=== PATIENT | male | born 1970 | race Caucasian/White ===

== ENCOUNTER 2016-11-24 09:15 | Inpatient (IN) | payer BC ==
[~2016-11-24] VITALS: Ht 180.3 cm; Wt 132.1 kg
--- NOTE | ~2016-11-24 | ENPV ---
Vascular Lower Extremity Vein Mapping Procedure Demographics Patient Name RADHA VALERA Date of Study 11/24/2016 Patient Number [id number] Gender Male Date of 1970 Age 46 Visit Number [id number] Height Accession Number [id number] Weight Room Number G6204 BSA BMI Referring Gal Monahan MD Physician DO Physician Physician Ordering Physician Gal Waldrop DO Manager Development Gas Scrubber Operator Ihsan Santos Conclusions Summary Greater saphenous veins are small in diameter bilaterally. Procedure Type of Study: Veins:Lower Extremity Vein Mapping, Vein Mapping. Indications for Study:Pre-Op CABG. Patient Status:Routine. Study Location:Inpatient Portable. Technical Quality:Adequate visualization. Velocities are measured in cm/s ; Diameters are measured in cm + ++--------++--------+ !Superficial - Great Saphenous Vein !!Right !!Left ! + ++--------++--------+ !Location !!Diameter!!Diameter! + ++--------++--------+ !Sapheno Femoral Junction !!0.33 !! ! + ++--------++--------+ !GSV High Thigh !!0.25 !! ! + ++--------++--------+ !GSV Mid Thigh !!0.23 !!0.14 ! + ++--------++--------+ !GSV Low Thigh !!0.17 !!0.09 ! + ++--------++--------+ !GSV Knee !!0.13 !!0.11 ! + ++--------++--------+ !GSV High Calf !!0.13 !!0.1 ! + ++--------++--------+ !GSV Mid Calf !!0.13 !!0.1 ! + ++--------++--------+ !GSV Ankle !!0.11 !!0.15 ! + ++--------++--------+ Signature dtt: Caleb Carrion dtd: 11/24/16 1536 Physician Self Edit
--- NOTE | ~2016-11-24 | OR ---
PATIENT'S NAME: RADHA VALERA [facility] AGE: 46 Y [address] ROOM: [address] [address] LOCATION: GICU ADMIT DATE: 11/24/2016 OR/Procedure Report DISCHARGE DATE: FAMILY PHYSICIAN: PHYSICIAN, NO ATTENDING PHYSICIAN: Radha Rolle SURGEON: Radha Rolle DO FARM GENERAL MANAGER: DATE OF PROCEDURE: 11/27/2016 PREOPERATIVE DIAGNOSIS: Volume overload with oliguric renal failure. POSTOPERATIVE DIAGNOSIS: Volume overload with oliguric renal failure. PROCEDURE: Insertion of left internal jugular vein temporary hemodialysis catheter. REFERRING PHYSICIAN: Mayda Orozco MD. BRIEF HISTORY: Mr. Valera is a 46-year-old man with above-noted diagnosis, he is in need of volume removal. Informed consent has been obtained from his . The left internal jugular vein was identified with ultrasound and the area was sterile prepped and draped. 1% lidocaine was used to infiltrate the area and patient was placed in a Trendelenburg position and the internal jugular vein was accessed without difficulty. Guidewire fed without resistance. Stab incision was made at the base and needle and withdrawn. Soft tissue dilator was placed over the guidewire and withdrawn and then a triple-lumen temporary hemodialysis catheter was placed over the guidewire. The guidewire was withdrawn. Each lumen aspirated easily for dark venous blood and flushed with sterile saline. It was secured in position with a 2-0 nylon. The dialysis lumens were locked with heparin. The patient tolerated the procedure well. A chest x-ray is pending for placement. RADHA ROLLE DO MCB/modl /[id number] d: 11/27/161817 t: 11/29/16 0805, OPERATIVE SUMMARY
--- NOTE | ~2016-11-24 | OR ---
PATIENT'S NAME: MENDOZA VALERA [facility] AGE: 46 Y [address] ROOM: [place] [address] LOCATION: [facility] ADMIT DATE: 11/24/2016 OR/Procedure Report DISCHARGE DATE: 11/29/2016 FAMILY PHYSICIAN: PHYSICIAN, NO ATTENDING PHYSICIAN: Mendoza Santo SURGEON: Mendoza Santo DO CORPORATE ACCOUNT EXECUTIVE: DATE OF PROCEDURE: 11/25/2016 PREOPERATIVE DIAGNOSES: 1. Sudden cardiac arrest with ventricular fibrillation. 2. Code ST elevation myocardial infarction. 3. Cardiogenic shock, placement of intra-aortic balloon pump. 4. Hypoxemia with respiratory failure. 5. Acute renal failure. 6. Marked polycythemia. POSTOPERATIVE DIAGNOSES: 1. Sudden cardiac arrest with ventricular fibrillation. 2. Code ST elevation myocardial infarction. 3. Cardiogenic shock, placement of intra-aortic balloon pump. 4. Hypoxemia with respiratory failure. 5. Acute renal failure. 6. Marked polycythemia. 7. Inability to close sternum secondary to marked hypoxia. PROCEDURE: Coronary artery bypass grafting x3 with reverse saphenous vein graft to the posterior descending artery, reverse saphenous vein graft to the obtuse marginal artery, and reverse saphenous vein graft to the obtuse marginal artery #1. REFERRING PHYSICIAN: Dr. Vela. BRIEF HISTORY: Mr. Valera is a 46-year-old white male, who presented to the [place] [facility] with ventricular fibrillatory arrest. He was defibrillated x3 and taken emergently to the coronary slabber at [facility]. There he was found to have total occlusion of the right coronary artery, total occlusion of the circumflex artery, and total occlusion of the left anterior descending artery. There were 3 very small diagonal artery supplying his coronary blood flow. Another ventricular fibrillatory arrest was seen in the slabber. He required emergent intubation. There was marked hypoxia per the report. They were able to open the LAD, but it was tenuous with marked clot burden. A stent was placed to ensure stability of transfer and a balloon pump was placed. He was transferred emergently to [facility]. On arrival, on 11/24/2016, he was markedly hypoxic with saturations PATIENT'S NAME: MENDOZA VALERA [facility] AGE: 46 Y [address] ROOM: [place] [address] LOCATION: GICU ADMIT DATE: 11/24/2016 OR/Procedure Report DISCHARGE DATE: 11/29/2016 FAMILY PHYSICIAN: PHYSICIAN, NO ATTENDING PHYSICIAN: Mendoza Santo barely above 85% for the entire transfer. He was taken directly to the recovery room and evaluated by myself and the anesthesia department. At that time, I made a decision that given his overt cardiogenic shock and respiratory failure, that we needed to allow him some recovery time to see if we could improve his oxygenation status prior to taking him for emergent bypass surgery. Over the previous 12 hours, he has improved from an oxygen saturation standpoint to the point where I believe he can tolerate the procedure without difficulty. He has been brought to the operative suite today, sterilely prepped and draped in usual fashion. A sternal incision was made and the sternum was divided in the midline. Concurrently to this, saphenous vein was harvested endoscopically. The patient was fully heparinized. Cannulation sutures were placed in the ascending aorta and right atrium for bypass and cardioplegia cannulas. The heart was grossly enlarged and quite distended. The right atrial appendage was dark in its appearance and cannulation was undertaken without difficulty. The vein had been prepared for bypass. Cardiopulmonary bypass was initiated, and the heart decompressed nicely. Crossclamp was applied. Antegrade and retrograde cardioplegia was given along with topical cold saline and a balloon pump was turned to an internal rate of 80. The posterior descending artery was identified and found to be rather a decent sized branch given its appearance of chronic total occlusion. An end-to- side vein graft anastomosed to this with 7-0 Prolene and connected to cardioplegia system. Another 500 mL of vein graft and retrograde cardioplegia was given. We then inspected the lateral wall, found 2 marginal branches. The distal one larger than the proximal one, but each greater than 1.5 mm. The vein grafts were then anastomosed to each of these serially and then we removed the crossclamp. Warm blood was now initiated via the retrograde cannula and the vein graft and the partial occlusion clamp was applied. Two of the vein graft were anastomosed to the ascending aortic cannula with a 4-0 punch and 6-0 Prolene. The partial occlusion clamp was removed. Vein grafts were de-aired, bulldog was removed, and distal flow was given, and the last vein graft was anastomosed with the heartstring device, 4.3 mm. This was done with a 6-0 Prolene as well. Once this was completed, the bulldog was removed after de-airing the vein graft and distal flow was given. All sites were hemostatic. Warm blood was now discontinued. The retrograde cannula was removed. Each pleural space had been opened to identify any residual pleural effusion. Two atrial and one ventricular temporary pacemaking wires were placed and ventilations were initiated. Hypoxia had been an issue prior to initiating cardiopulmonary bypass, but this resolved nicely with bypass. The balloon pump was now turned to one-to-one, and we began weaning from cardiopulmonary bypass. We started at a full flow of 6 L, we made it to approximately 2 L, when we noticed that his pressures were just not adequate, full flow was resumed and adjustments were made in his medications with the addition of Primacor and epinephrine and continued dosages of Levophed. Timing adjusted on the balloon pump and then we weaned from bypass without difficulty. The venous cannulas were removed. Volume returned from the pump to PATIENT'S NAME: SOTO MENDOZA Catalan [facility] AGE: 46 Y [address] ROOM: [address] [address] LOCATION: [facility] ADMIT DATE: 11/24/2016 OR/Procedure Report DISCHARGE DATE: 11/29/2016 FAMILY PHYSICIAN: PHYSICIAN, JONATHAN ATTENDING PHYSICIAN: Mendoza Santo the patient. The ascending aortic cannula was removed. Protamine was given. Four chest tubes were placed, one in the left pleural space, one in the posterior pericardial space, and one in each pleural space. Copious amounts of antibiotic-infused saline was used to irrigate the sternum and mediastinum, and we approximated the sternum with the ZipFix system; however, within just a few minutes, our oxygen saturations began to fall significantly, although he maintained a good cardiac indexes and good blood pressures. The compliance of the closed chest onto the lungs was just unacceptable, and we removed the ZipFix system. This immediately improved our saturations, and we decided to maintain his open chest while he continued to recover; therefore, we utilized 2 orthopedic plates to solidify the sternum. This was done with 16 mm screws into the 4th and 8th ribs. The skin and soft tissues were then closed in an interrupted fashion with 0 Prolene and skin nishant. We then transferred him to the intensive care unit in critical, but stable condition. DO JAIR VILLA/veronica /[id number] d: 11/29/162018 t: 11/30/16 0932, OPERATIVE SUMMARY
--- NOTE | ~2016-11-24 | OR ---
PATIENT'S NAME: RADHA VALERA [facility] AGE: 46 Y [address] ROOM: [address] [address] LOCATION: GICU ADMIT DATE: 11/24/2016 OR/Procedure Report DISCHARGE DATE: 11/29/2016 FAMILY PHYSICIAN: PHYSICIAN, NO ATTENDING PHYSICIAN: Radha Rolle SURGEON: Radha Rolle DO POWER OPERATOR: DATE OF PROCEDURE: 11/28/2016 PREOPERATIVE DIAGNOSIS: Successful weaning of intra-aortic balloon pump. POSTOPERATIVE DIAGNOSIS: Successful weaning of intra-aortic balloon pump. PROCEDURE PERFORMED: Removal of left femoral artery intra-aortic balloon pump and application of FemoStop device. BRIEF HISTORY: Mr. Valera is a 46-year-old male, who has had his coronary artery bypass grafting performed and his chest closed earlier today. Throughout the afternoon, we were able to wean the balloon pump without any changes in blood pressure or cardiac output. His cardiac indices at this point in time are 2.7 with 1-3.5 augmentation. Therefore, the balloon pump was ready to be removed. DESCRIPTION OF PROCEDURE: FemoStop was placed just above the access point for proximal and distal control, and the balloon pump and its sheath were removed without difficulty. The FemoStop was placed to a pressure where there was no bleeding and the distal pulses were intact. FemoStop will be weaned as ordered. RADHA ROLLE DO MCB/modl /[id number] d: 11/29/161945 t: 11/30/16 0751, OPERATIVE SUMMARY
--- NOTE | ~2016-11-24 | OR ---
PATIENT'S NAME: MENDOZA VALERA [facility] AGE: 46 Y [address] ROOM: [address] [place] [id number] LOCATION: GICU ADMIT DATE: 11/24/2016 OR/Procedure Report DISCHARGE DATE: FAMILY PHYSICIAN: PHYSICIAN, NO ATTENDING PHYSICIAN: Mendoza Santo SURGEON: Jay Oliveira MD HISTORY TUTOR: DATE OF PROCEDURE: 11/25/2016 HISTORY: This is a 46-year-old gentleman, transferred from the emergency room in [place] for emergent CABG. By report, he was taken to the brick and blocker aid labor and hypoxic there. They were unable to get a catheter in. They did ultimately get a 12-Hungarian Bhardwaj in. He presents today for a coronary artery bypass graft. Dr. Santo was only able to get a 12-Hungarian back in. It appears he has urethral stricture. Upon review of the chart, I find nothing in his history. He has undergone his bypass per Dr. Santo. I then addressed his stricture and got a better catheter in. I started with filiforms. He has meatal stenosis, but as we will see, I suspect he has some distal narrowing because of the more proximal stricture. Specifically, we got the filiforms back into the bladder. We started with a 14-Hungarian follower. It goes easily back to the penile urethra. He has obvious narrowing there. I dilated that up to an 18-Hungarian. I then attempted a 16 coude tip catheter. However, with the balloon, and with his distal narrowing, cannot get past the fossa navicularis. I used Trell sound and dilated the meatus and fossa navicularis. The 16 coude then passes back to the bladder. We had return of urine. The patient likely has none diagnosed stricture. I would leave the catheter indwelling for some passive dilation while he convalescence. We will have a voiding trial prior to dismissal. He was not particularly symptomatic, he should not need anything further. Depending on his overall progress and depending on his symptoms, he could at some point consider an urethrotomy or even urethroplasty. IMPRESSION: Urethral stricture. PLAN: As above. PATIENT'S NAME: MENDOZA VALERA [facility] AGE: 46 Y [address] ROOM: [address] [address] LOCATION: [facility] ADMIT DATE: 11/24/2016 OR/Procedure Report DISCHARGE DATE: FAMILY PHYSICIAN: PHYSICIAN, JONATHAN ATTENDING PHYSICIAN: Mendoza Santo MD SFH/modl /[id number] d: 11/25/16 1840 t: 12/06/16 1448, OPERATIVE SUMMARY
--- NOTE | ~2016-11-24 | OR ---
PATIENT'S NAME: RADHA VALERA [facility] AGE: 46 Y [address] ROOM: [place] [address] LOCATION: GICU ADMIT DATE: 11/24/2016 OR/Procedure Report DISCHARGE DATE: 11/29/2016 FAMILY PHYSICIAN: PHYSICIAN, NO ATTENDING PHYSICIAN: Radha Rolle SURGEON: Radha Rolle DO ADVERTISING DIRECTOR: DATE OF PROCEDURE: 11/24/2016 PREOPERATIVE DIAGNOSIS: Cardiogenic shock, need for central venous access. POSTOPERATIVE DIAGNOSIS: Cardiogenic shock, need for central venous access. PROCEDURE: Insertion of left subclavian vein based triple-lumen catheter. BRIEF HISTORY: Mr. Valera is a 46-year-old white male with the above-noted diagnosis. The left infraclavicular space was sterilely prepped and draped in the usual fashion and he was placed into a Trendelenburg position. The subclavian vein was accessed without difficulty and a guidewire fed without resistance. Stab incision made at the base of the needle and the needle was withdrawn. Soft tissue dilator was placed over the guidewire and withdrawn and then the triple-lumen catheter was placed over the guidewire and the guidewire was withdrawn. Each lumen aspirated easily for dark venous blood and was flushed with normal saline. It was secured in position with 2-0 silk and a sterile dressing was applied. RADAH ROLLE DO MCB/modl /[id number] d: 11/29/161929 t: 11/30/16 0743, OPERATIVE SUMMARY
--- NOTE | ~2016-11-24 | HP ---
PATIENT'S NAME: RADHA VALERA [facility] AGE: 46 Y [address] ROOM: [place] [address] LOCATION: [facility] ADMIT DATE: 11/24/2016 History & Physical DISCHARGE DATE: FAMILY PHYSICIAN: PHYSICIAN, UNKNOWN ATTENDING PHYSICIAN: Radha Santo DATE OF SERVICE: CHIEF COMPLAINT: Code STEMI. HISTORY OF PRESENT ILLNESS: Mr. 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 The unit was called. On arrival, the patient was complaining of chest discomfort. Shortly after their arrival, he went into cardiac arrest with ventricular fibrillation. He was resuscitated and transferred emergently to [place] [facility] diagnosed with an ST-segment elevation myocardial infarction, was taken as a code STEMI to the pathology laboratory director. On arrival to the pathology laboratory director, he was found to be markedly hypoxic. He was intubated in the pathology laboratory director. There was difficulty maintaining his oxygenation. The catheterization ensued. He was found to have a total occlusion of the right coronary artery with the [id number] collaterals, total occlusion of the circumflex artery, and total occlusion of the LAD after two diagonals. Intervention was carried out to the LAD including a stent and clot aspiration and he somewhat stabilized. Balloon pump was inserted and he was transferred in an emergent fashion to [facility]. During flight, he was unstable with his oxygen and multiple bouts of nonsustained ventricular tachycardia and hypotension. On arrival to [facility], he was brought emergently to the postanesthesia care unit and stabilized. We got him hooked up to ventilators, made ventilator adjustments and got his O2 sats from the mid 80s to the low 90s. Chest x-ray showed severe pulmonary edema bilaterally with good endotracheal tube position and good appropriate position of his intra-aortic balloon pump. Transesophageal echocardiography was performed and his ejection fraction is approximately 25% to 30% with minimal mitral regurgitation and no aortic insufficiency. He had no arrhythmias on arrival. He was stabilized in the post anesthesia care unit and brought to the intensive care unit. PAST MEDICAL HISTORY: Significant for corneal abrasion, and significant for pneumonia and deep venous thrombosis. PAST SURGICAL HISTORY: Negative. PATIENT'S NAME: RADHA VALERA [facility] AGE: 46 Y [address] ROOM: [place] [address] LOCATION: GICU ADMIT DATE: 11/24/2016 History & Physical DISCHARGE DATE: FAMILY PHYSICIAN: PHYSICIAN, UNKNOWN ATTENDING PHYSICIAN: Radha Santo ALLERGIES: NONE. MEDICATIONS: His medication use at home is none. He does not see a doctor routinely. SOCIAL HISTORY: He does have a significant smoking history at least one pack per day. Does work at rail road. REVIEW OF SYSTEMS: Unobtainable secondary to patient being intubated and no family present at the time of his arrival. It is otherwise as per the history of chief complaint. PHYSICAL EXAMINATION: GENERAL: Reveals a sedated white male he has been recently paralyzed approximately 9:35 with the last dose, his pupils are equally round and reactive to light and accommodation. NECK: Full. No palpable tracheal deviation is appreciated. No crepitus is noted. Heart: Tachycardic but regular. No murmur or gallop is noted. LUNGS: Extremely coarse and wet bilaterally. No accessory muscle use was appreciated. ABDOMEN: Obese. No palpable masses are noted. EXTREMITIES: Show evidence of multiple IVs, but no significant edema, cyanosis, or clubbing. NEUROLOGIC: The patient is difficult to say as he has been sedated and paralytics had been given. He is currently not over breathing the vent and is not moving any extremities secondary to the paralytics. LABORATORY AND TEST RESULTS: Laboratory is pending on his arrival here. He has been noted to have hematocrit of 62, hemoglobin of 22, and his last ABG showed a pH of 7.01 with a pCO2 of 77. IMPRESSION: 1. Code ST-segment elevation myocardial infarction with cardiac arrest, total occlusion of three coronary vessels, status post stenting of the LAD. 2. Intraaortic balloon pump. 3. Severe pulmonary edema. 4. Morbid obesity. 5. Polycythemia likely secondary to chronic smoking. 6. Cardiogenic shock. PATIENT'S NAME: RADHA VALERA [facility] AGE: 46 Y [address] ROOM: [place] [address] LOCATION: GICU ADMIT DATE: 11/24/2016 History & Physical DISCHARGE DATE: FAMILY PHYSICIAN: PHYSICIAN, UNKNOWN ATTENDING PHYSICIAN: Bibler,Radha C The patient will be aggressively resuscitated and plan for surgical intervention likely on the morning of Monday the , hopefully allowing him 12-18 hours to resolve some of his pulmonary edema and stabilize his oxygenation. Full risks, benefits, and alternatives have been discussed with his family once they arrived including his current situation and they understand his grave status. Risks include but are not limited to bleeding, requiring transfusion, return to the operative suite, myocardial infarction, cerebrovascular attack, renal and/or pulmonary failure, postoperative arrhythmias, need for postoperative ECMO support, operative mortality. At this time, the patient is in critical condition and will be managed as such. DO JAIR VILLA/veronica /[id number] D: [id number] T: [id number] HISTORY & PHYSICAL
--- NOTE | ~2016-11-24 | DS ---
PATIENT'S NAME: MENDOZA VALERA [facility] AGE: 46 Y [address] ROOM: [address] [place] [id number] LOCATION: GI ADMIT DATE: 11/24/2016 Discharge Summary DISCHARGE DATE: 11/29/2016 FAMILY PHYSICIAN: PHYSICIAN, NO ATTENDING PHYSICIAN: Mendoza Santo SUMMARY Date of Expiration: 11/29/2016. HISTORY AND HOSPITAL COURSE: Mr. Valera is a 46-year-old white male, who was transferred emergently from [facility] after suffering a ventricular fibrillatory cardiac arrest. He was defibrillated x3 by EMS on arrival to the scene and transferred to the emergency department and taken as a code STEMI to the [facility]. Another arrest was noted. He was intubated and shocked. There was a time of hypoxia. He was found to have total occlusion of his right coronary artery, total occlusion of his circumflex artery, and total occlusion of his LAD. He had three small diagonals as his primary source of coronary flow. Stent intervention was completed to the LAD to allow safe transfer, but the patient was markedly hypoxic despite balloon pump, pressors, and ventilation. He was transferred emergently via flight to [facility], where we met him in the recovery room. There, he was resuscitated further and we were able to get his oxygen saturations above 90 for the first time in several hours. I made the decision that he was not stable for emergent coronary artery bypass grafting, and he was transferred to the intensive care unit for further medical management. Over the next 12 hours, we were able to stabilize his saturations to the point where we felt he was acceptable to take to surgery. He was taken to surgery on 11/25, where coronary artery bypass grafting was undertaken without difficulty. However, at the end of the procedure with the additional volume from surgery, we were unable to close his chest without significant hypoxia, so his sternum was stabilized with sternal plates to allow the sternum to remain open but stable, and he was transferred back to the intensive care unit. He presented to [facility] with an elevated creatinine of 2.3 and over the past couple of days, we were able to get it down to 2.0 and he had initially responded to diuretics on 11/26. However, on 11/27, his saturations had continued to worsen, and we started him on next stage renal replacement therapy. We were able to remove 3.5 L of fluid without difficulty and without hypotension. In fact, we were able to wean some of his pressor agents and on 11/28, he returned to the operative suite for closure of his sternum. He tolerated this without difficulty, and we were able to continue to wean his pressor agents, and he returned to the ICU on very tiny dose of milrinone and no pressors at all. Throughout that afternoon of 11/28, we were able to wean his intraaortic balloon pump maintaining mean pressures greater than 70, systolics greater than 120, and cardiac indices greater than 2.5, and his balloon pump was pulled on 11/28 PATIENT'S NAME: MENDOZA VALERA [facility] AGE: 46 Y [address] ROOM: [address] [place], [place] [address] LOCATION: [facility] ADMIT DATE: 11/24/2016 Discharge Summary DISCHARGE DATE: 11/29/2016 FAMILY PHYSICIAN: , JONATHAN ATTENDING PHYSICIAN: Mendoza Santo evening. Within over the next few hours, he continued to make good progress and then approximately between midnight and 2:00 a.m., he began to have significant pressure difficulties, difficulties with oxygen saturation monitoring, and I came into the hospital to evaluate him. Cuff pressures would only allow mean reading. A femoral art line was placed, and his systolics were in the 130s to 140s, but his diastolics were in the 30s giving means of approximately 40s to 50s. Adjustments were made in his medications. Laboratory evaluation showed marked acidosis, marked hyperkalemia despite continuous dialysis. Adjustments continued to be made. Laboratory evaluation also showed hepatic failure and he had evidence of microvascular changes to the fingertips, toes, and knees with mottling and cyanosis. Over the next several hours, he continued to decline despite all aggressive measures. Family was at the bedside and informed of all of the above. But despite everything, his potassium continued to climb and at the last check was 7.1 at approximately 9:48. Despite adjustments in dialysis and other medical managements, the patient continued to decline and at 10:40 a.m. Family was with him at the bedside. Autopsy was discussed and they declined. DO JAIR VILLA/veronica /[id number] d: 11/29/16 2247 t: 11/30/16 0753, DISCHARGE SUMMARY
--- NOTE | ~2016-11-24 | OR ---
PATIENT'S NAME: RADHA VALERA [facility] AGE: 46 Y [address] ROOM: [place] [address] LOCATION: GICU ADMIT DATE: 11/24/2016 OR/Procedure Report DISCHARGE DATE: 11/29/2016 FAMILY PHYSICIAN: PHYSICIAN, NO ATTENDING PHYSICIAN: Radha Rolle SURGEON: Radha Rolle DO INSTRUMENT TESTER: DATE OF PROCEDURE: 11/29/2016 PREOPERATIVE DIAGNOSIS: Need for inqb-gq-pcrc blood pressure monitoring. POSTOPERATIVE DIAGNOSIS: Need for goep-oa-gkyy blood pressure monitoring. PROCEDURE: Insertion of right femoral artery 5-Hungarian arterial line. BRIEF HISTORY: Mr. Valera is status post coronary artery bypass grafting, cardiogenic shock. This had been resolving nicely and he had actually underwent closure on 11/28 with removal of his balloon pump. This early a.m. of 11/29, he has had a marked swing in his status with the next stage being unable to clear his acidosis. My concern is for heparin-induced thrombocytopenia with thrombocytosis. He has been on argatroban for approximately 6 hours at this point with evidence of continuing microvascular changes in the fingertips and toes. His SVR's have dropped markedly concerning also for SIRS and we were unable to use pickup an adequate blood pressure utilizing the cuff at a reading only means of 51-53. Therefore, the right femoral area was sterilely prepped and draped, and the right femoral artery was accessed without difficulty. A guidewire fed without resistance. Stab incision was made at the base of the needle and the needle was withdrawn. The catheter was advanced over the guidewire and the guidewire was withdrawn. The catheter was then connected to the arterial waveform system and we had pressures of systolic of 147 with a diastolic of 34 giving a mean of 53. Catheter was secured to the groin and a sterile dressing was applied. RADHA ROLLE DO MCB/modl /[id number] d: 11/29/161951 t: 11/30/16 0746, OPERATIVE SUMMARY
--- NOTE | ~2016-11-24 | CON ---
PATIENT'S NAME: MENDOZA VALERA [facility] AGE: 46 Y [address] ROOM: [address] [place], [place] [address] LOCATION: GICU ADMIT DATE: 11/24/2016 Consultation DISCHARGE DATE: 11/29/2016 FAMILY PHYSICIAN: PHYSICIAN, NO ATTENDING PHYSICIAN: Mendoza Santo CORRECTED PATIENT ACCOUNT INFORMATION 11/30/16 AO DATE OF CONSULTATION: 11/27/2016 REFERRING PHYSICIAN: Jay Oliveira MD REASON FOR CONSULTATION: Elevated BUN and creatinine, generalized edema. HISTORY OF PRESENT ILLNESS: The patient is a 46-year-old white male with no history of diabetes or hypertension, but previous strong family history of coronary artery disease who developed chest pain at work and was taken to [facility] Emergency Room where he was diagnosed with acute ST elevation ME. The patient thereafter went into cardiac arrest. He was taken to supervisor laboratory where he was noted to have total occlusion of right coronary artery and the circumflex and also had occlusion of mid LAD. The patient did have stent placement in LAD with angioplasty. Postoperatively, he had another episode of cardiac arrest. He was then flown to [facility] for further management. The patient was already intubated after the first episode of cardiac arrest. Dr. Santo did accept him, and the patient underwent a 3-vessel coronary artery bypass grafting last Monday. The patient has been having problems with oxygenation. He is currently on 3 pressors. Urine output is 30 to 40 mL an hour, but his FiO2 is 80%, and he has significant pulmonary edema and generalized edema. I have been asked to see him because, on admission to the hospital, he was noted to have a creatinine of 2.0, now it is 2.7, and because of his generalized edema. The patient's reports that they have been only for the last 6 months. As far as she knows, he did not have any other medical problems, and he actually does not have a regular family doctor. Baseline creatinine on admission was 2.0. He is not on NATALIA inhibitor or ARB and only takes acetaminophen and Aleve from time to time. His creatinine is 2.7 now. REVIEW OF SYSTEMS: The patient is intubated and sedated in the medical intensive care unit, and I unable to obtain any review of systems. PAST MEDICAL HISTORY: Significant for corneal abrasion, pneumonia, deep vein thrombosis, acute ST elevation ME, . PAST SURGICAL HISTORY: PATIENT'S NAME: MENDOZA VALERA [facility] AGE: 46 Y [address] ROOM: [address] [place], [place] [address] LOCATION: GICU ADMIT DATE: 11/24/2016 Consultation DISCHARGE DATE: 11/29/2016 FAMILY PHYSICIAN: PHYSICIAN, NO ATTENDING PHYSICIAN: Mendoza Santo Coronary artery bypass grafting and cardiac catheterization with stent placement. SOCIAL HISTORY: The patient works for the [employer]. He lives at home in [place] with his . He continues to smoke one pack per day. FAMILY HISTORY: Very strong family history of coronary artery disease. Both his father and brother had myocardial infarctions around the age of 50. Mother actually of a cardiac event in her 20s. ALLERGIES: NO KNOWN DRUG ALLERGIES. MEDICATIONS: Current medications include: 1. Prevacid 30 mg capsule. 2. Proventil inhaler q.6 h. 3. Currently, on Levophed per protocol. 4. Carlos-Synephrine per protocol. 5. Vasopressin per protocol. 6. Plavix 75 mg a day. 7. nasal cream twice a day. 8. Primacor 20 mg every day. PHYSICAL EXAMINATION: GENERAL APPEARANCE: A 46-year-old white male, lying in the hospital bed, intubated and sedated. He has a sternal wound, and there is a dressing on top. He has an A-line in the right wrist. The patient has a balloon pump. VITAL SIGNS: Temperature 99.4, pulse 104, systolic blood pressure 131 and diastolic 60. HEENT: Head normocephalic. Pupils are round and equal, about 3 mm. Normal eyelids and conjunctivae. Oral cavity could not be examined. Trachea is central. No thyromegaly. Unable to evaluate jugular venous pulsation. He has a central line in the right internal jugular position. CARDIAC: Heart sounds are audible, but he has a click from the balloon pump, as well he has a pericardial rub. LUNGS: Diminished breath sounds as a whole. No expiratory wheeze. ABDOMEN: Soft. Cannot palpate any liver or spleen. EXTREMITIES: He has no clubbing or cyanosis. The patient does have edema all the way up to his thighs and his bottom. Also, his upper extremities are edematous. SKIN: No sign of vasculitis or livedo reticularis. LYMPHATIC: Did not examine lymphatics. PATIENT'S NAME: MENDOZA VALERA [facility] AGE: 46 Y [address] ROOM: [address] [place], [place] [address] LOCATION: GI ADMIT DATE: 11/24/2016 Consultation DISCHARGE DATE: 11/29/2016 FAMILY PHYSICIAN: PHYSICIAN, NO ATTENDING PHYSICIAN: Mendoza Santo NEUROLOGICAL: Not possible. HIGHER PSYCHIATRIC FUNCTION: Cannot be tested. LABORATORY DATA: WBC 24.4, hemoglobin 8.5, hematocrit 24.9, and platelet count 124. Glucose 124, BUN 36, creatinine 2.7, sodium 140, potassium 4.1, chloride 104, bicarbonate 23, and calcium 8.0. Albumin of 3.3. Phosphorus 1.5. ASSESSMENT: 1. Elevated BUN and creatinine. His baseline creatinine was 2.0. We do not have any baseline from before because he did not have regular medical followup. It is possible that post cardiac arrest, his creatinine went up, and he also was exposed to contrast because of the emergent cardiac catheterization. Cannot rule out possibility of cholesterol embolization both from the cardiac catheterization as well as bypass and intraaortic balloon pump. 2. Generalized edema. 3. Respiratory failure. 4. Acute ST-elevation myocardial infarction. 5. Status post coronary artery bypass grafting. 6. Thrombocytopenia, probably from balloon pump. 7. Elevated white count. 8. Hypophosphatemia. 9. Mild metabolic acidosis. PLAN: I agree with Dr. Santo that the patient will need to be on continuous venovenous hemofiltration because of his generalized edema. As mentioned above, he is currently on 3 pressors, and he has an FiO2 of 80%. We will start him on continuous venovenous infiltration and aim to keep him net negative by 100 to 200 mL an hour initially. We will avoid heparinization. Did discuss with the patient's about the risks, benefits, and alternatives of CVVH. I would like to thank Dr. Mendoza Satno for allowing me to participate in this patient's care. M MD EDGAR PENNINGTON/veronica PATIENT'S NAME: MENDOZA VALERA [facility] AGE: 46 Y [address] ROOM: [place] [address] LOCATION: [facility] ADMIT DATE: 11/24/2016 Consultation DISCHARGE DATE: 11/29/2016 FAMILY PHYSICIAN: JONATHAN SANDS ATTENDING PHYSICIAN: Mendoza Santo /[id number] CORRECTED PATIENT ACCOUNT INFORMATION 11/30/16 AO d: 11/27/16 1142 t: 12/04/16 1058, CONSULTATION REPORT
--- NOTE | ~2016-11-24 | OR ---
PATIENT'S NAME: RADHA VALERA [facility] AGE: 46 Y [address] ROOM: [address] [address] LOCATION: GICU ADMIT DATE: 11/24/2016 OR/Procedure Report DISCHARGE DATE: 11/29/2016 FAMILY PHYSICIAN: PHYSICIAN, NO ATTENDING PHYSICIAN: Radha Rolle SURGEON: Radha Rolle DO DISTRIBUTION LINEMAN: DATE OF PROCEDURE: 11/28/2016 PREOPERATIVE DIAGNOSES: Status post coronary artery bypass grafting with hypoxia and respiratory failure. POSTOPERATIVE DIAGNOSES: 1. Status post coronary artery bypass grafting with hypoxia and respiratory failure. 2. Renal failure status post initiation of renal replacement therapy. PROCEDURE: Closure of chest with removal of sternal plates. BRIEF HISTORY: Mr. Valera is a 46-year-old white male with above-noted diagnosis. He was operated on 11/25 and initiated on hemodialysis on 11/27. We have removed slightly over 3.5 L of fluid. His oxygenation status is markedly improved and he has been brought to the operative suite today for closure of his sternum. DESCRIPTION OF PROCEDURE: He has been brought to the operative suite, sterilely prepped and draped in usual fashion. His previous incision was opened with removal of the suture material and nishant. The sternal plates were then unscrewed from the 4th and 8th ribs and all screws were intact and removed without difficulty as well as the two plates. We then inspected the mediastinal space. The heart was without any evidence of surrounding clot. All grafts appeared patent and stripped without difficulty. No evidence of pleural effusions were encountered. Each chest tube was irrigated and the Pleur-Evac exchanged. We then again copiously irrigated the mediastinal space with plain and antibiotic infused saline and then closed the sternum with ZipFix system. His saturations were well maintained. His soft tissues were then closed in a layered fashion with 0 Vicryl, 2-0 Vicryl, and 4-0 Monocryl and he was transferred back to the intensive care unit in stable condition. RADHA ROLLE DO MCB/modl PATIENT'S NAME: RADHA VALERA [facility] AGE: 46 Y [address] ROOM: [address] [address] LOCATION: GICU ADMIT DATE: 11/24/2016 OR/Procedure Report DISCHARGE DATE: 11/29/2016 FAMILY PHYSICIAN: JONATHAN SANDS ATTENDING PHYSICIAN: Radha Rolle /[id number] d: 11/29/161939 t: 11/30/16 0748, OPERATIVE SUMMARY
[2016-11-24 11:55] LABS: BICARBONATE 21.3 mmol/L (18.0-23.0); LACTATE 6.3 mEq/L (0.50-1.60); PO2 101 mmHg (80-90)
[2016-11-24 12:00] LABS: HEMATOCRIT 57.6 % (37.0-53.0); HEMOGLOBIN 18.9 g/dL (12.0-17.0); MCH 30.8 pg (27.0-34.0); MCHC 32.8 gm/dL (32.0-36.5); MCV 93.8 fl (83.0-98.0); MPV 11.1 fl (9.4-12.4); PLATELET COUNT 227 K/uL (150-450); RBC 6.14 M/uL (4.00-6.00); RDW-CV 15.1 % (11.9-14.6)
[2016-11-24 12:02] LABS: WBC 29.5 K/uL (4.0-11.0)
[2016-11-24 12:04] LABS: PCO2 77 mmHg (35-45)
[2016-11-24 12:17] LABS: ALBUMIN 3.4 gm/dL (3.5-5.0); INR - (THERAPEUTIC) 1.17 (0.92-1.07); PROTIME 12.3 SECONDS (9.8-11.4); TOTAL BILIRUBIN 0.7 mg/dL (0.0-1.5); TOTAL PROTEIN 6.7 g/dL (6.0-8.4)
[2016-11-24 12:19] LABS: CALCIUM 7.1 mg/dL (8.5-10.5)
[2016-11-24 12:28] LABS: ABSOLUTE NEUTROPHIL CT (ANC) 22.4 K/uL (1.4-9.0); BANDED NEUTROPHIL # 2.4 K/uL (0.0-0.1); BANDED NEUTROPHILS % 8 %; LYMPHOCYTE # 3.2 K/uL (0.8-4.0); LYMPHOCYTE % 11 %; MONOCYTE # 3.8 K/uL (0.0-1.0); SEGMENTED NEUTROPHIL # 20.1 K/uL (1.4-9.0); SEGMENTED NEUTROPHIL % 68 %
[2016-11-24 12:46] LABS: MAGNESIUM 2.4 mg/dL (1.8-2.6); PHOSPHORUS 6.9 mg/dL (2.5-4.9)
[2016-11-24 13:55] LABS: PO2 91 mmHg (80-90)
[2016-11-24 14:00] LABS: BICARBONATE 25.7 mmol/L (18.0-23.0); PCO2 72 mmHg (35-45)
[2016-11-24 14:22] LABS: BILIRUBIN URINE NEGATIVE (NEGATIVE); BLOOD URINE 150 /UL (NEGATIVE); COLOR URINE YELLOW (YELLOW); GLUCOSE URINE NEGATIVE (NEGATIVE); KETONE URINE NEGATIVE (NEGATIVE); LEUKOCYTES URINE NEGATIVE /UL (NEGATIVE); NITRITE URINE NEGATIVE (NEGATIVE); PROTEIN URINE 30 mg/dL (NEGATIVE); TURBIDITY URINE CLEAR (CLEAR); UROBILINOGEN URINE NORMAL (NORMAL)
[2016-11-24 14:28] LABS: RBC URINE 0-2 #/HPF (NEGATIVE); WBC URINE 0-2 #/HPF (NEGATIVE)
[2016-11-24 14:29] LABS: BACTERIA URINE FEW (NEGATIVE); EPITHELIAL URINE 0-2 #/HPF (NEGATIVE); MUCUS URINE 1+ (NEGATIVE)
[2016-11-24] MEDS ORDERED: TYLENOL EXTRA500 MG PO (14:42)
[2016-11-24 15:12] LABS: BICARBONATE 25.4 mmol/L (18.0-23.0); PCO2 44 mmHg (35-45); PO2 238 mmHg (80-90)
[2016-11-24 16:55] LABS: ALBUMIN 3.6 gm/dL (3.5-5.0); ANION GAP 14.5 (10.0-19.0); CALCIUM 6.9 mg/dL (8.5-10.5); CREATININE 1.9 mg/dL (0.6-1.3); PHOSPHORUS 1.7 mg/dL (2.5-4.9); POTASSIUM 4.5 mMol/L (3.7-5.1)
--- NOTE | 2016-11-24 16:56 | NUR ---
Pt to ICU 1310, 7.5 ETT secured with ETAD at 23 Teeth and advanced to 25 Teeth. Vent settings, A/C 20, TV 700, P 15. Weaned Fio2 to 50%, peep unchanged. Lung sounds clear/diminished, more diminished bases. Sxn moderate thin bloody with weak spont cough. Will continue to monitor and wean as ordered
[2016-11-24 17:52] LABS: BICARBONATE 26.8 mmol/L (18.0-23.0); PCO2 36 mmHg (35-45)
[2016-11-24 17:53] LABS: PO2 131 mmHg (80-90)
[2016-11-24 21:25] LABS: BICARBONATE 25.4 mmol/L (18.0-23.0); PCO2 41 mmHg (35-45); PO2 110 mmHg (80-90)
[2016-11-25 00:15] LABS: PCO2 38 mmHg (35-45)
[2016-11-25 00:16] LABS: PO2 63 mmHg (80-90)
[2016-11-25 04:35] LABS: PCO2 35 mmHg (35-45); PO2 84 mmHg (80-90)
--- NOTE | 2016-11-25 04:46 | NUR ---
Patient currently on the vent. FiO2 currently at 70% for O2 sats of 92-95%. PEEP weaned down to 8 this shift. ETCO2 was 33-36 throughout the shift. Breathsounds slightly throughout bilaterally. Suctioning small to moderate amounts of thick bloody secretion. Patient due to go to surgery this am for a CABG, will continue to monitor patient.
--- NOTE | 2016-11-25 05:31 | NUR ---
PT REMAINS INTUBATED AND SEDATED ON PROPOFOL AT 30 MCG/KG/MIN. WHEN SEDATION VACTION PERFORMED, PT OPENS EYES SLIGHTLY AND WEAKLY SQUEEZES HANDS TO COMMAND. PERRL. REMAINS ON IABP WITH 1:2 FREQUENCY AND 100% AUGMENTATION. LEVOPHED WEANED OFF AT 0330. MILRINONE CONTINUES AT 0.25 MCG/KG/MIN. AMIO GTT STARTED PER PROTOCOL DUE TO OCCASIONAL RUNS OF V-TACH. SVV TRENDING UP SHIFT PROGRESSED, TOTAL OF 1500 ML OF 5% ALBUMIN GIVEN THIS SHIFT. UOP REMAINS LOW. PEEP DECREASED FROM 15 TO 8 THIS SHIFT. FIO2 INCREASED TO 70 AFTER 0000 DUE TO LOW P02. FLUCTUATING LUNG SOUNDS AND AMOUNTS OF SECRETIONS ABLE TO BE SUCTIONED. HEPARIN GTT OFF AT 0400. IABP, TWO FEMORAL ART LINES TO R) GROIN, AND LIJ ALL REMAIN INTACT AND PATENT. RAJNI PLASCENCIA RN
[2016-11-25 10:56] LABS: ALPHA ANGLE 64 degrees; CLOT FORMATION TIME 135 seconds; CLOTTING TIME 232 seconds; MAXIMUM CLOT FIRMNESS 52 mm; MAXIMUM LYSIS 0 %
[2016-11-25 12:08] LABS: HEMOGLOBIN 10.8 g/dL (12.0-17.0); MCV 95.4 fl (83.0-98.0); MPV 11.6 fl (9.4-12.4)
[2016-11-25 12:11] LABS: WBC 28.9 K/uL (4.0-11.0)
[2016-11-25 12:12] LABS: HEMATOCRIT 32.9 % (37.0-53.0); MCH 31.3 pg (27.0-34.0); MCHC 32.8 gm/dL (32.0-36.5); PLATELET COUNT 118 K/uL (150-450); RBC 3.45 M/uL (4.00-6.00)
[2016-11-25 12:32] LABS: PTT 42 SECONDS (25-32)
[2016-11-25 12:33] LABS: INR - (THERAPEUTIC) 1.82 (0.92-1.07)
[2016-11-25 12:34] LABS: PROTIME 19.2 SECONDS (9.8-11.4)
[2016-11-25 12:44] LABS: ALPHA ANGLE 63 degrees; ALPHA ANGLE 66 degrees (70-81); CLOT FORMATION TIME 138 seconds; CLOTTING TIME 131 seconds (43-82); CLOTTING TIME 186 seconds; MAXIMUM CLOT FIRMNESS 52 mm; MAXIMUM CLOT FIRMNESS 55 mm (51-72); MAXIMUM LYSIS 0 %
[2016-11-25 13:53] LABS: BICARBONATE 25.8 mmol/L (18.0-23.0)
[2016-11-25 13:53] LABS: BICARBONATE 27.5 mmol/L (18.0-23.0); PCO2 55 mmHg (35-45); PO2 97 mmHg (80-90)
[2016-11-25 13:54] LABS: POTASSIUM 3.6 mEq/L (3.7-5.1); SODIUM 141 mEq/L (135-145)
[2016-11-25 13:54] LABS: PCO2 63 mmHg (35-45); PO2 53 mmHg (80-90)
[2016-11-25 13:56] LABS: BICARBONATE 31.9 mmol/L (18.0-23.0); PCO2 68 mmHg (35-45); PO2 380 mmHg (80-90); POTASSIUM 3.5 mEq/L (3.7-5.1); SODIUM 141 mEq/L (135-145)
[2016-11-25 13:57] LABS: BICARBONATE 28.7 mmol/L (18.0-23.0); PCO2 51 mmHg (35-45); PO2 189 mmHg (80-90); POTASSIUM 4.6 mEq/L (3.7-5.1); SODIUM 140 mEq/L (135-145)
[2016-11-25 13:59] LABS: BICARBONATE 27.5 mmol/L (18.0-23.0); PCO2 49 mmHg (35-45); PO2 279 mmHg (80-90); POTASSIUM 5.4 mEq/L (3.7-5.1); SODIUM 138 mEq/L (135-145)
[2016-11-25 14:00] LABS: BICARBONATE 24.8 mmol/L (18.0-23.0); PCO2 60 mmHg (35-45); PO2 60 mmHg (80-90); POTASSIUM 3.4 mEq/L (3.7-5.1); SODIUM 141 mEq/L (135-145)
[2016-11-25 14:05] LABS: ANION GAP 16.7 (10.0-19.0); CALCIUM 7.3 mg/dL (8.5-10.5); CREATININE 2.5 mg/dL (0.6-1.3); POTASSIUM 3.7 mMol/L (3.7-5.1)
[2016-11-25 14:47] LABS: PCO2 58 mmHg (35-45)
[2016-11-25 14:48] LABS: PO2 75 mmHg (80-90)
[2016-11-25 16:44] LABS: BICARBONATE 25.3 mmol/L (18.0-23.0); PCO2 48 mmHg (35-45); PO2 83 mmHg (80-90)
--- NOTE | 2016-11-25 17:29 | NUR ---
Significant Event: Patient is intubated and sedated on propofol at 15mcg/kg/min. Do not wean vent. ST with arrythmia HR 113-130. SVR 600-800. Albumin 500ml x1. CVP 15-20. CI 2.1-2.6, weaned epi gtt form 4-1 mcg/min. On levophed at .2mcg/kg/min and Carlos at 2mcg/kg/min. To wean off of radial artline. IABP remains intact in left groin, no hematoma or oozing noted. EKG 1:2, 100 augmented. Right groin sheeths pulled, femstop intact, no oozing or bleeding site is soft, no hematoma noted. Hypo-rare bowel sounds, no bm. Bhardwaj intact with light pink -yellow UOP with sediment noted. Lung sounds slightly coarse through out. FIO2 at 100%. CTx4, bloody output from all of them. Mediastinal had a total of 90ml and plueral total of 270ml out. Temp max 99.7. PRN norco given x1. Follow up: continue to wean drips.
[2016-11-25 19:16] LABS: BICARBONATE 28.5 mmol/L (18.0-23.0); PCO2 42 mmHg (35-45)
[2016-11-25 19:17] LABS: PO2 109 mmHg (80-90)
[2016-11-25 19:30] LABS: ALBUMIN 3.3 gm/dL (3.5-5.0); ANION GAP 14.1 (10.0-19.0); CALCIUM 8.7 mg/dL (8.5-10.5); CREATININE 2.4 mg/dL (0.6-1.3); POTASSIUM 4.1 mMol/L (3.7-5.1)
[2016-11-25 19:31] LABS: PHOSPHORUS 1.5 mg/dL (2.5-4.9)
[2016-11-26 04:34] LABS: BICARBONATE 32.7 mmol/L (18.0-23.0); PCO2 41 mmHg (35-45)
--- NOTE | 2016-11-26 04:34 | NUR ---
SIGNIFICANT EVENT: PT RESTED WELL ON IABP THROUGHOUT NIGHT. INCREASED PROPOFOL TO 25MCG/KG/MIN DUE TO RESTLESSNESS. AT 2300 PT STARTED HAVING INCREASE IN SBP AND DECREASE IN CI, TWO TABS NORCO GIVEN AND THIS IMPROVED RESULTS ALONG WITH EPI BACK ON AT 3MCG/MIN. LEVO DOWN TO 0.1MCG/KG/MIN. HR SLOWLY DECREASED THROUGHOUT SHIFT TO 100 BY 0300. CI VERY LABILE FROM 2.0 TO 2.5, PA PRESSURES 40S, SVR 5-600. DID NOT FOLLOW COMMANDS OR OPEN EYES BUT RESPONDS TO ORAL CARES AND PUPIL CHECKS. VERY OCCASIONAL PVCs ONLY FOLLOW UP:
[2016-11-26 04:41] LABS: PO2 82 mmHg (80-90)
[2016-11-26 04:50] LABS: ANION GAP 11.4 (10.0-19.0); CREATININE 2.3 mg/dL (0.6-1.3); POTASSIUM 3.4 mMol/L (3.7-5.1)
[2016-11-26 04:54] LABS: BASOPHIL % 0.1 %; HEMOGLOBIN 8.7 g/dL (12.0-17.0); IMMATURE GRANULOCYTE # 0.1 K/uL (0.0-0.3); IMMATURE GRANULOCYTE % 0.5 %; LYMPHOCYTE # 4.1 K/uL (0.8-4.0); LYMPHOCYTE % 18.7 %; MCV 91.8 fl (83.0-98.0); MONOCYTE # 1.7 K/uL (0.0-1.0); MONOCYTE % 7.7 %; MPV 12.6 fl (9.4-12.4); NEUTROPHIL # (ANC) 16.1 K/uL (1.4-9.0); NRBC % 0.1 /100WBC (0-0.00); RBC 2.81 M/uL (4.00-6.00); RDW-CV 14.4 % (11.9-14.6)
[2016-11-26 04:56] LABS: HEMATOCRIT 25.8 % (37.0-53.0); MCHC 33.7 gm/dL (32.0-36.5); PLATELET COUNT 90 K/uL (150-450); WBC 22.1 K/uL (4.0-11.0)
[2016-11-26 14:44] LABS: BICARBONATE 29.6 mmol/L (18.0-23.0); PCO2 38 mmHg (35-45); PO2 68 mmHg (80-90)
[2016-11-26 16:55] LABS: MAGNESIUM 1.9 mg/dL (1.8-2.6); POTASSIUM 4.1 mMol/L (3.7-5.1)
--- NOTE | 2016-11-26 17:16 | NUR ---
D: CABG I: VENT, MDI R: INCREASED FIO2 TO 60% TODAY, BS C&D TO SL COARSE T/O DAY, SXNING OUT MOD TO LARGE THICK BLOODY SECRETIONS ALMOST EVERY 2 HRS, NO OTHER SIGNIFICANT CHANGES T/O DAY P: CONT TO WEAN O2 TOLERATES
--- NOTE | 2016-11-26 18:52 | NUR ---
Significant Event: Patient remains intubated and sedated on propofol at 30mcg/kg/min. Does occasional move extremities spontaneously with stimulation. Does not follow commands or open eyes. Does not withdraw in any extremity to painful stimuli.ST with HR upper 90's to low 100's. Vagals down to HR 50-70's when coughs, and does bigeminal during this time and drops SBP to 70-80's, returns to baseline within <1min. Replaced total of 80 meq KCL, 2gm magnesium, 1gram calcium. Carlos gtt at 2mcg/kg/min, levophed gtt at 0.18mcg/kg/min. Vasopressin started todat at 0.4units/min. IABP intact with EKG trigger,1:2, 100% augmentation. Since vasopressin started augmented pressures have been 90-100. Sternal dressing intact, no new drainage. Pacer wires capped and tapped to chest. Had frequent PVC's this afternoon and replaced mg. Lungs asculated slightly coarse-coarse. Thick blood tinged secretions from ET tube and large sinus secretions orally suctioned from right nare that is also thick and blood tinged. Titrated from 40%FIO@ to 60%fio2, sats 92-96%. Rare bowel sounds,no BM. OGT to lis, greenish/brown bile. Bhardwaj patent, gave 2mg bumex x1, responded well. CT x2, no fluctations, serosanganous drainage from both.Mediastinal had 260ml out and plueral had 210ml out. Temp 100-101, gave prn tylenol suppx1. PRN norco 2tab given x2. Albumin 500ml given x1. Continue with q1h accuchecks with IV insulin gtt Follow up: continue. possible or in am to close chest incision.
[2016-11-26 23:47] LABS: PCO2 37 mmHg (35-45); PO2 61 mmHg (80-90)
[2016-11-27 03:51] LABS: BICARBONATE 25.4 mmol/L (18.0-23.0); PCO2 44 mmHg (35-45); PO2 50 mmHg (80-90)
[2016-11-27 04:05] LABS: ANION GAP 17.1 (10.0-19.0); CREATININE 2.7 mg/dL (0.6-1.3); POTASSIUM 4.1 mMol/L (3.7-5.1)
[2016-11-27 04:08] LABS: BASOPHIL % 0.1 %; HEMATOCRIT 24.9 % (37.0-53.0); HEMOGLOBIN 8.4 g/dL (12.0-17.0); IMMATURE GRANULOCYTE # 0.3 K/uL (0.0-0.3); IMMATURE GRANULOCYTE % 1.3 %; LYMPHOCYTE # 1.5 K/uL (0.8-4.0); LYMPHOCYTE % 6.3 %; MCH 31.6 pg (27.0-34.0); MCHC 33.7 gm/dL (32.0-36.5); MCV 93.6 fl (83.0-98.0); MONOCYTE # 1.6 K/uL (0.0-1.0); MONOCYTE % 6.6 %; MPV 14.2 fl (9.4-12.4); NEUTROPHIL # (ANC) 20.9 K/uL (1.4-9.0); NEUTROPHIL % 85.7 %; NRBC % 1.4 /100WBC (0-0.00); RBC 2.66 M/uL (4.00-6.00); RDW-CV 14.6 % (11.9-14.6)
[2016-11-27 04:51] LABS: WBC 24.4 K/uL (4.0-11.0)
[2016-11-27 04:52] LABS: PLATELET COUNT 24 K/uL (150-450)
--- NOTE | 2016-11-27 05:18 | NUR ---
D: POST CARDIAC ARREST I: VENT, MDI R: PT. STARTED SHIFT ON PEEP 10 FIO2 60% AND IS NOW ON PEEP 15 100% FOR INCREASED O2 DEMAND. BREATH SOUNDS ARE COARSE CRACKLES IN THE BASES AND SLIGHTLY COARSE IN THE UPPERS. SUCTIONED A MODERATE TO LARGE AMOUNT OF THICK BLOOD TINGED SECRETIONS. ETCO2 30-36. P: CONTINUE TO MONITOR PT UNTIL FURTHER NOTICE.
--- NOTE | 2016-11-27 05:44 | NUR ---
PATIENT IS SEDATED DOES NOT WITHDRAW TO PARTIAL NAILBED PRESSURE,PUPILS ARE 2MM ROUNDED EQUAL AND REACT TO LIGHT,CLEAR UPPER LUNGS SOUND DIMINISHED/COARSE ON THE LOWERS,PATIENT RECEIVED 10MG VAC ORDERED BY DR ROLLE FOR RR 24,O2SAT WAS 84%,IMMEDIATELY IMPROVED TO 99%,PEEP=15 XTC1=338% 4 CHEST TUBES TO -20 CM H2O S.S DRAINAGE.IABP RUNS WITH NO PROBLEMS LT GROIN SOFT NO BLEEDING ,PEDAL PULSES ARE PRESENTED WITH DOPPLER. FOLLOW UP:CONTINUE TO MONITOR PATIENT'S HEMODYNAMIC AND RESPIRATORY STATUS CLOSELY,PLAN FOR NX-STAGE TODAY.
[2016-11-27 09:27] LABS: HEMATOCRIT 26.1 % (37.0-53.0); HEMOGLOBIN 8.5 g/dL (12.0-17.0); MCH 30.7 pg (27.0-34.0); MCHC 32.6 gm/dL (32.0-36.5); MCV 94.2 fl (83.0-98.0); RBC 2.77 M/uL (4.00-6.00); RDW-CV 14.5 % (11.9-14.6)
[2016-11-27 09:30] LABS: PLATELET COUNT 63 K/uL (150-450); WBC 29.7 K/uL (4.0-11.0)
[2016-11-27 09:59] LABS: ABSOLUTE NEUTROPHIL CT (ANC) 25.8 K/uL (1.4-9.0); BANDED NEUTROPHILS % 17 %; LYMPHOCYTE # 2.7 K/uL (0.8-4.0); LYMPHOCYTE % 9 %; MONOCYTE # 1.2 K/uL (0.0-1.0); SEGMENTED NEUTROPHIL # 20.8 K/uL (1.4-9.0); SEGMENTED NEUTROPHIL % 70 %
[2016-11-27 10:40] LABS: BICARBONATE 27.7 mmol/L (18.0-23.0); PCO2 59 mmHg (35-45); PO2 78 mmHg (80-90)
[2016-11-27 17:20] LABS: ALBUMIN 3.9 gm/dL (3.5-5.0); ANION GAP 14.1 (10.0-19.0); CALCIUM 8.3 mg/dL (8.5-10.5); CREATININE 2.3 mg/dL (0.6-1.3); MAGNESIUM 2.3 mg/dL (1.8-2.6); PHOSPHORUS 3.1 mg/dL (2.5-4.9); POTASSIUM 4.1 mMol/L (3.7-5.1)
--- NOTE | 2016-11-27 17:28 | NUR ---
Significant Event: Patient remains intubated and sedated on propofol at 40mcg/kg/min. Gave prn vecuronium x5 for overbreathing set vent rate. Afebrile. Remains on IABP changed to 1:1 today, 100% augmentation, ekg trigger. Augmentation pressures 112-123. SVR 670-850's. CI 1.9-2.5,CO5.2-6.7. Remains on levo, ellie,epi, vaso, and amiodarone. Titrated from 100% FIO2 to 60%. Lungs ascultated coarse with occassional wheezes. IABP groin site soft, no oozing,hematoma noted. Bhardwaj patent 5-75ml/h. Nx stage started today after left dialysis catheter placed with pigtail. Goal is to remove 100-200ml/h Rare bowel sounds,no BM. OGT patent,green bile drainage. Continues on IV inuslin gtt, q2h accuchecks. PRN norco 2 tab given x1. Did not turn do to hemodynamic instability. Pacer wires capped and taped to chest. Follow up:continue
--- NOTE | 2016-11-27 17:56 | NUR ---
D: CABG I: VENT, MDI R: INCREASED RR TO 20, WEANED FIO2 TO 50% TODAY, BS SL COARSE T/O, SXNED OUT SMALL TO MOD THICK BLOODY SECRETIONS, NO OTHER SIGNIFICANT CHANGES T/O DAY P: CONT.
[2016-11-28 01:29] LABS: ALBUMIN 3.7 gm/dL (3.5-5.0); CALCIUM 8.6 mg/dL (8.5-10.5); CREATININE 2.4 mg/dL (0.6-1.3); PHOSPHORUS 3.1 mg/dL (2.5-4.9)
[2016-11-28 01:30] LABS: ANION GAP 14.2 (10.0-19.0); MAGNESIUM 2.2 mg/dL (1.8-2.6); POTASSIUM 4.2 mMol/L (3.7-5.1)
[2016-11-28 04:28] LABS: INR - (THERAPEUTIC) 1.63 (0.92-1.07); PROTIME 17.2 SECONDS (9.8-11.4)
[2016-11-28 05:09] LABS: BICARBONATE 25.4 mmol/L (18.0-23.0); PO2 91 mmHg (80-90)
[2016-11-28 05:12] LABS: PCO2 43 mmHg (35-45)
--- NOTE | 2016-11-28 05:17 | NUR ---
D: POST CARDIAC ARREST I: VENT, MDI R: PT. REMAINED ON PEEP OF 15 AND 40% FIO2 THROUGHOUT NIGHT WITH SATS 96-98%. ETCO2 32-34. BREATH SOUNDS ARE SLIGHTLY COARSE T/O. SUCTINOED A MODERATE AMOUNT OF THICK BLOOD TINGED SECRETIONS. P: START TO WEAN PEEP TOLERATED
[2016-11-28 05:18] LABS: HEMATOCRIT 23.9 % (37.0-53.0); MCH 30.9 pg (27.0-34.0); MCHC 33.5 gm/dL (32.0-36.5); MCV 92.3 fl (83.0-98.0); MPV 12.2 fl (9.4-12.4); RBC 2.59 M/uL (4.00-6.00); RDW-CV 14.3 % (11.9-14.6)
[2016-11-28 05:19] LABS: PLATELET COUNT 22 K/uL (150-450); WBC 24.7 K/uL (4.0-11.0)
[2016-11-28 05:25] LABS: ANION GAP 14.2 (10.0-19.0); CALCIUM 8.6 mg/dL (8.5-10.5); CREATININE 2.6 mg/dL (0.6-1.3)
[2016-11-28 05:32] LABS: POTASSIUM 4.2 mMol/L (3.7-5.1)
--- NOTE | 2016-11-28 05:34 | NUR ---
patient is sedated with iv propofol at 40 meq/kg/min,does not withdraw to partial nailbed pressure,was given couple times 10mg of vac to slow down his respiratory rate,pupils are 2mm rounded equal and react to light,will have cooasional productive cough,thick pinky secrtions small amount,a/c vent modr fio2=40%,peep=15,p9pgk=73% clear upper lungs sound diminished on the bases,4 chest tubes to -20 cm h2o suction,IABP runs through lt femoral with no problems 1:1 mode,patient is sinus rhythm with rt b.b.b levophed drip at 0.7 meq/kg/min,vasopressin at 0.04 units/h,epinephrine drip at 2 meq/min,milrinone at 0.25 meq/kg/min to keep map>65 and c.i>2.2,nx-stage runs without any problems. follow up:continue to monitor patient's hemodynamic and respiratory status closely,possible to or to close chest.
[2016-11-28 06:08] LABS: BANDED NEUTROPHIL # 6.4 K/uL (0.0-0.1); BANDED NEUTROPHILS % 26 %; LYMPHOCYTE # 3.2 K/uL (0.8-4.0); LYMPHOCYTE % 13 %; MONOCYTE # 0.2 K/uL (0.0-1.0); SEGMENTED NEUTROPHIL # 14.6 K/uL (1.4-9.0); SEGMENTED NEUTROPHIL % 59 %
[2016-11-28 10:00] LABS: ALBUMIN 3.7 gm/dL (3.5-5.0); ANION GAP 14.1 (10.0-19.0); CALCIUM 8.6 mg/dL (8.5-10.5); CREATININE 2.6 mg/dL (0.6-1.3); MAGNESIUM 2.3 mg/dL (1.8-2.6); PHOSPHORUS 3.3 mg/dL (2.5-4.9)
--- NOTE | 2016-11-28 10:00 | NUR ---
Introduced self and role of care management to pt's Dariela of 6 months. She stated they live in [place] and he works for the [employer]. She stated together they have 12 kids together and his youngest is in [place] and is 18 years old and she has at 13-15 and 20 year old at home with her and the 20 year old is helping out with the younger ones along with friends. At this time Dariela is over at the [facility] and her works is fine with her being here and she does not need a note of any kind. She works in [place] with the [employer].
[2016-11-28 10:01] LABS: POTASSIUM 4.1 mMol/L (3.7-5.1)
--- NOTE | 2016-11-28 13:06 | NUR ---
A - PT SCREENED D/T LOS, VENT STATUS. S/P EMERGENT CABG, CHEST LEFT OPEN. VENT. SEDATED W/ PROPOFOL. NXSTAGE STARTED. BOWEL SOUNDS RARE. 1-2+ EDEMA. HT: 71" WT: 11/28 306#, 11/24 286# - WT UP 20# (6.9%) D/T EDEMA. BMI: 42.7 LABS: ACCUCHECK WNL-REAS, BUN/CR 35/2.6, AST 1731, ALT 554, PREALB 19, WBC 24.7, HGB/HCT 8.0/23.9. MEDS: ZOSYN, SOLUMEDROL, PREVACID, KCL, INSULIN, D5LR, NAUSEA. DIET: NPO x 3; OG TO LIS NEEDS: 7801-8770 KCAL (30-35 KCAL/KG IBW), 101-109 G PRO (1.2-1.4 G/KG IBW), 2340 ML FLUID 1 ML/KCAL D - DIFFICULTY SWALLOWING R/T VENT SUPPORT AEB NPO STATUS. I - GOAL FOR NUTRITION INITIATION W/IN 48 HRS. REC NEPRO @ 55 ML/HR TO PROVIDE 2376 KCAL, 107 G PRO, 960 ML FREE WATER M/E - WILL MONITOR POC, DIET F/U IN 2-4 DAYS.
[2016-11-28 15:53] LABS: BICARBONATE 28.7 mmol/L (18.0-23.0); PCO2 57 mmHg (35-45); PO2 60 mmHg (80-90)
[2016-11-28 16:04] LABS: ANION GAP 12.4 (10.0-19.0); CALCIUM 8.3 mg/dL (8.5-10.5); CREATININE 3.1 mg/dL (0.6-1.3)
[2016-11-28 16:05] LABS: POTASSIUM 4.4 mMol/L (3.7-5.1)
[2016-11-28 16:37] LABS: BICARBONATE 25.8 mmol/L (18.0-23.0); PCO2 49 mmHg (35-45)
[2016-11-28 16:38] LABS: PO2 225 mmHg (80-90)
[2016-11-28 17:14] LABS: INR - (THERAPEUTIC) 1.46 (0.89-1.05); PROTIME 15.4 SECONDS (9.1-10.7)
--- NOTE | 2016-11-28 17:41 | NUR ---
D: RESPIRATORY FAILURE I: V2OO, ALBUTEROL MDI R: BREATH SOUNDS COARSE TO SLIGHTLY COARSE, SXN- SMALL THICK BLOOD TINGED, ET TUBE SECURE, CUFF AT MINIMAL OCCLUSIVE PRESSURE P: CONTINUE CURRENT THERAPY
--- NOTE | 2016-11-28 17:51 | NUR ---
Significant Event:Patient remains intubated and sedated on propofol at 40mcg/kg/min.PRN norcuron given x4. Afebrile. Back to OR today to close chest.IABP weaned to 1:3, 100% augmentation, EKG trigger. ST with HR 107 . PA pressures post surgery 40-50. Right arm mottled and fingers bluish/purple.Bilateral knees mottled, bilateral toes purplish blue,blanches. LUngs ascultated slightly coarse-coarse in uppers and diminished in bases. CTx4, Mediastinal 27ml out and plueral 80ml out. Rare bowel sounds. OGT to LIS. Nx stage restarted after surger, added NS flush this shift. PRN Minier given x1. Follow up: Possible discontinue IABP tonight and possibly start to wake 12/29.
[2016-11-28 17:56] LABS: PHOSPHORUS 3.9 mg/dL (2.5-4.9)
[2016-11-28 17:58] LABS: MAGNESIUM 2.3 mg/dL (1.8-2.6)
[2016-11-28 17:59] LABS: ALBUMIN 3.7 gm/dL (3.5-5.0)
[2016-11-29 03:08] LABS: PCO2 47 mmHg (35-45)
[2016-11-29 03:20] LABS: PO2 161 mmHg (80-90)
[2016-11-29 03:21] LABS: BICARBONATE 11.6 mmol/L (18.0-23.0)
[2016-11-29 03:29] LABS: ALBUMIN 3.7 gm/dL (3.5-5.0); CREATININE 3.7 mg/dL (0.6-1.3); TOTAL PROTEIN 6.1 g/dL (6.0-8.4)
[2016-11-29 03:36] LABS: ANION GAP 26.7 (10.0-19.0); MAGNESIUM 2.8 mg/dL (1.8-2.6); POTASSIUM 5.7 mMol/L (3.7-5.1); TOTAL BILIRUBIN 6.9 mg/dL (0.0-1.5)
[2016-11-29 03:57] LABS: PROTIME 107.9 SECONDS (9.8-11.4)
[2016-11-29 03:58] LABS: INR - (THERAPEUTIC) 10.04 (0.92-1.07)
[2016-11-29 03:59] LABS: HEMATOCRIT 22.3 % (37.0-53.0); RBC 2.21 M/uL (4.00-6.00); RDW-CV 15.6 % (11.9-14.6)
[2016-11-29 04:00] LABS: HEMOGLOBIN 7.4 g/dL (12.0-17.0); MCH 33.5 pg (27.0-34.0); MCHC 33.2 gm/dL (32.0-36.5); MCV 100.9 fl (83.0-98.0); PLATELET COUNT 104 K/uL (150-450)
[2016-11-29 05:13] LABS: ABSOLUTE NEUTROPHIL CT (ANC) 32.7 K/uL (1.4-9.0); BANDED NEUTROPHIL # 14.2 K/uL (0.0-0.1); BANDED NEUTROPHILS % 33 %; LYMPHOCYTE # 5.2 K/uL (0.8-4.0); LYMPHOCYTE % 12 %; MONOCYTE # 1.3 K/uL (0.0-1.0); SEGMENTED NEUTROPHIL # 18.5 K/uL (1.4-9.0); SEGMENTED NEUTROPHIL % 43 %
--- NOTE | 2016-11-29 05:29 | NUR ---
SIGNIFICANT EVENT: IABP REMOVED AT 2014. PT HYPOTENSIVE AT 2229, BISI RESTARTED, UP TO 3MCG/KG/MIN BY 138. EPI ON AT 2350, UP TO 8MCG/MIN BY 219. PEEP DECREASED TO 10, THEN INCREASED BACK TO 12 WITH OXYGENATION ISSUES, FIO2 UP TO 100% AT 0300. PT HANDS/FEET ARE PURPLE/MOTTLED, NO BLANCHING NOTED TO R INDEX FINGER, DR. ROLLE AWARE, REUBEN HUGGER ON PATIENT FOR T 97.0 AND TO ASSIST WITH CIRCULATION. ATTEMPTED TO DOPPLE PERIPHERAL PULSES, WHICH DISAPPEARED AT [address] ROLLE HERE. L RADIAL PULSE INTACT AT 0500 BUT ALL OTHER PULSES UNABLE TO BE DOPPLED. CANNOT GET O2 SAT READING, ABG READS PAO2 OF 161, DR. ROLLE STATES PERIPHERAL SAT READING IS UNRELIABLE. FROM 2200 ON COULD NOT GET MAP >60, CI <2.0 FROM 0200 ON, DR. ROLLE AWARE. VASO MAXED. ARGATROBAN OFF AT 0[address] DUE TO P[address]. [address] FOREMAN UPDATED WITH AM LABS, PRISMASATE CHANGED. VANO AND BICARB GTT ADDED, WBG 43 AND PH 7.00. R GROIN FEMORAL A LINE PLACED PER DR. ROLLE AT 0015. UPDATED X2 THROUGHOUT NIGHT. FOLLOW UP:
[2016-11-29 07:19] LABS: BICARBONATE 13.3 mmol/L (18.0-23.0); PCO2 43 mmHg (35-45)
[2016-11-29 07:29] LABS: PO2 210 mmHg (80-90)
[2016-11-29 09:23] LABS: ALBUMIN 3.2 gm/dL (3.5-5.0); CALCIUM 7.9 mg/dL (8.5-10.5); CREATININE 3.2 mg/dL (0.6-1.3)
[2016-11-29 09:37] LABS: ANION GAP 33.1 (10.0-19.0); MAGNESIUM 2.9 mg/dL (1.8-2.6); POTASSIUM 7.1 mMol/L (3.7-5.1)
[2016-11-29 09:55] LABS: PHOSPHORUS 8.8 mg/dL (2.5-4.9)
== END 2016-11-29 10:40 | disposition expired | DRG 235 ==
LOC: GICU 09:15
PROVIDERS: Internal Medicine Nephrology; ADMIT Thoracic Surgery (Cardiothoracic Vascular Surgery)
PROC: 0BH17EZ Insertion of Endotracheal Airway into Trachea, Via Natural or Artificial Opening (ICD-10-PCS; 2016-11-24)
PROC: 5A1955Z Respiratory Ventilation, Greater than 96 Consecutive Hours (ICD-10-PCS; 2016-11-24)
PROC: 02HV33Z Insertion of Infusion Device into Superior Vena Cava, Percutaneous Approach (ICD-10-PCS; 2016-11-24)
PROC: 02HV33Z Insertion of Infusion Device into Superior Vena Cava, Percutaneous Approach (ICD-10-PCS; principal; 2016-11-25)
PROC: 5A1221Z Performance of Cardiac Output, Continuous (ICD-10-PCS; principal; 2016-11-25)
PROC: 0T7D7ZZ Dilation of Urethra, Via Natural or Artificial Opening (ICD-10-PCS; principal; 2016-11-25)
PROC: B24BZZ4 Ultrasonography of Heart with Aorta, Transesophageal (ICD-10-PCS; principal; 2016-11-25)
PROC: 0T9B70Z Drainage of Bladder with Drainage Device, Via Natural or Artificial Opening (ICD-10-PCS; principal; 2016-11-25)
PROC: 02HP32Z Insertion of Monitoring Device into Pulmonary Trunk, Percutaneous Approach (ICD-10-PCS; principal; 2016-11-25)
PROC: 06BP0ZZ Excision of Right Saphenous Vein, Open Approach (ICD-10-PCS; principal; 2016-11-25)
PROC: 021209W Bypass Coronary Artery, Three Arteries from Aorta with Autologous Venous Tissue, Open Approach (ICD-10-PCS; principal; 2016-11-25)
PROC: 3E033XZ Introduction of Vasopressor into Peripheral Vein, Percutaneous Approach (ICD-10-PCS; 2016-11-26)
PROC: 05H333Z Insertion of Infusion Device into Right Innominate Vein, Percutaneous Approach (ICD-10-PCS; 2016-11-27)
PROC: B54MZZA Ultrasonography of Right Upper Extremity Veins, Guidance (ICD-10-PCS; 2016-11-27)
PROC: 5A1D60Z (ICD-10-PCS; 2016-11-27)
PROC: 30233R1 Transfusion of Nonautologous Platelets into Peripheral Vein, Percutaneous Approach (ICD-10-PCS; 2016-11-27)
PROC: 0PQ00ZZ Repair Sternum, Open Approach (ICD-10-PCS; 2016-11-28)
PROC: 02PY3DZ Removal of Intraluminal Device from Great Vessel, Percutaneous Approach (ICD-10-PCS; 2016-11-28)
PROC: 30233R1 Transfusion of Nonautologous Platelets into Peripheral Vein, Percutaneous Approach (ICD-10-PCS; 2016-11-28)
PROC: 04HY32Z Insertion of Monitoring Device into Lower Artery, Percutaneous Approach (ICD-10-PCS; 2016-11-29)
DX: I21.09 ST elevation (STEMI) myocardial infarction involving other coronary artery of anterior wall (principal); J96.01 Acute respiratory failure with hypoxia; K76.7 Hepatorenal syndrome; I49.01 Ventricular fibrillation; R57.0 Cardiogenic shock; E87.2 Acidosis; I95.9 Hypotension, unspecified; D69.6 Thrombocytopenia, unspecified; Z95.811 Presence of heart assist device; I47.2 Ventricular tachycardia; I50.1 Left ventricular failure, unspecified; N17.9 Acute kidney failure, unspecified; I25.10 Atherosclerotic heart disease of native coronary artery without angina pectoris; E87.5 Hyperkalemia; E66.01 Morbid (severe) obesity due to excess calories; Z68.39 Body mass index [BMI] 39.0-39.9, adult; D75.1 Secondary polycythemia; Z82.49 Family history of ischemic heart disease and other diseases of the circulatory system; R60.1 Generalized edema; Z95.1 Presence of aortocoronary bypass graft; Z95.5 Presence of coronary angioplasty implant and graft; E83.39 Other disorders of phosphorus metabolism; D72.829 Elevated white blood cell count, unspecified; F17.200 Nicotine dependence, unspecified, uncomplicated; Z86.711 Personal history of pulmonary embolism; Z79.02 Long term (current) use of antithrombotics/antiplatelets; N35.9 Urethral stricture, unspecified; K72.90 Hepatic failure, unspecified without coma; Z78.1 Physical restraint status; R73.9 Hyperglycemia, unspecified; D64.9 Anemia, unspecified; Z86.74 Personal history of sudden cardiac arrest
CPT/HCPCS: A4725; C1713; C1887; C9113; J0171; J0282; J0610; J0690; J0883; J1120; J1644; J2150; J2260; J2370; J2440; J2543; J2704; J2720; J2930; J2997; J3370; J3475; J3480; J3490; J7030; J7040; J7050; J7060; J7121; P9035; P9045; P9047

== ENCOUNTER → 2016-11-24 | Outpatient (CLI) | payer BC ==
[~2016-11-24] MED LIST: TYLENOL EXTRA500 MG PO
== END | disposition disaster alternative care site (69) ==
LOC: GAIR 08:48
DX: I46.9 Cardiac arrest, cause unspecified (principal); R07.9 Chest pain, unspecified; Z72.0 Tobacco use
CPT/HCPCS: A0422; A0431; A0436; J7030